=== PATIENT | male | born 1970 | race Caucasian/White ===

== ENCOUNTER 2019-10-22 17:47 | Emergency (ER) | payer SELFPAY ==
[~2019-10-22] VITALS: Ht 188 cm; Wt 79.5 kg
[2019-10-22 18:24] VITALS: Ht 188 cm; Wt 79.5 kg
[2019-10-22] MEDS ORDERED: LITHIUM CARBON300 MG PO (19:48)
[2019-10-22 20:01] VITALS: BP 146/95
== END 2019-10-22 20:01 | disposition home or self-care (01) ==
LOC: D.ER 17:47
DX: G89.29 Other chronic pain (principal); M54.5 Low back pain; Z76.0 Encounter for issue of repeat prescription